=== PATIENT | male | born 1990 | race Two or more races ===

== ENCOUNTER 2023-09-12 17:29 | Emergency (ER) | payer OTHER ==
[~2023-09-12] VITALS: Ht 170.2 cm; Wt 65.9 kg
[2023-09-12 17:50] VITALS: BP 172/92; RESP 24; O2SAT 99
[2023-09-12 18:00] VITALS: PULSE 110
[2023-09-12 19:05] LABS: Chloride 100 mmol/L (98-107); Potassium 3.3 mmol/L (3.5-5.1); Sodium 135 mmol/L (136-145)
[2023-09-12 19:06] LABS: Anion Gap 11 (5-15); Calcium 9.9 mg/dL (8.5-10.1); Carbon Dioxide 24 mmol/L (20-30)
[2023-09-12 19:11] LABS: BUN/Creatinine Ratio 8.9 (10.0-20.0); Blood Urea Nitrogen 7 mg/dL (9-23); Glucose 141 mg/dL (74-106)
[2023-09-12 19:12] LABS: Blood Alcohol 3.3 mg/dL (<10)
[2023-09-12] MEDS ORDERED: CHL25C PO (21:06)
== END 2023-09-12 21:58 | disposition left against medical advice (07) ==
LOC: ER 17:29 → EDBD 17:29 → ER 21:58
DX: G40.89 Other seizures (principal); F10.239 Alcohol dependence with withdrawal, unspecified
CPT/HCPCS: 36415; 70450; 80048; 80320; 85379; 93005